=== PATIENT | male | born 1970 | race Caucasian/White ===

== ENCOUNTER → 2017-02-22 | Outpatient (CLI) | payer OTHER ==
--- NOTE | ~2017-02-22 | US37 ---
[facility] A Service of [facility] RADIOLOGY TEXT RESULTS PATIENT: DEACON LEIJA LOCATION: SNIV : 74 UNIT #: [id number] AGE: [address]: Deb Higgins MD SEX: M ORDER DR: [id number] [id number] O MR#: [id number] Acc #: [id number] NAME: DEACON LEIJA : 1970 SEX: M STUDY DATE/TIME: 02/22/2017 8:41 UNIT: SNIV ROOM: STUDY DESCRIPTION: US Carotid W/Doppler Bilateral Attending Physician: Deb Higgins M.D. Referring Physician: Deb Higgins M.D. Ordering Physician: Deb Higgins M.D. Primary Care Physician: Deb Higgins M.D. MEDICAL IMAGING REPORT This report is preliminary unless electronic signature is present. EXAM Bilateral carotid duplex DATE OF EXAMINATION 02/22/2017 HISTORY Dizziness. FINDINGS Duplex imaging of the carotid arteries was performed. The right common carotid artery is patent. Internal and external carotid arteries are patent with no significant plaque. Velocity in the right common carotid is 108, internal is 82 and external is 94 cm/sec. Right ICA/CCA Ratio is 0.98. On the left side the common, internal and external carotid arteries are patent with no plaque or stenosis. Velocity in the left common carotid is 127 cm/sec, internal is 88 and external is 92 cm/sec. Antegrade flow is seen in the right and left vertebral arteries. IMPRESSION There is no evidence of plaque or stenosis in the internal carotid arteries bilaterally. Antegrade flow is seen in the right and left vertebral arteries. Essentially normal carotid duplex exam. Dictated by.Finn Jamison M.D. THIS IS AN ELECTRONICALLY VERIFIED REPORT [facility] A Service of [facility] RADIOLOGY TEXT RESULTS PATIENT: DEACON LEIJA LOCATION: SNIV : 74 UNIT #: [id number] AGE: [address]: Deb Higgins MD SEX: M ORDER DR: Joel Jamison M.D. at 03/02/2017 9:45 AM /alex TD: 02/22/2017 16:59 JOB #: [id number] MEDICAL IMAGING REPORT Page 1 of 1
== END | disposition home or self-care (01) ==
LOC: SNIV 08:30
DX: R42 Dizziness and giddiness (principal)
CPT/HCPCS: 93880

== ENCOUNTER → 2017-05-10 | Outpatient (CLI) | payer OTHER ==
--- NOTE | ~2017-05-10 | US136 ---
[facility] A Service of [facility] RADIOLOGY TEXT RESULTS PATIENT: DEACON LEIJA LOCATION: CNIV : 74 UNIT #: [id number] AGE: [address]: Deb Higgins MD SEX: M ORDER DR: [id number] [address] [id number] [facility]. [place], [place] [address] [id number] O MR#: [id number] Acc #: [id number] NAME: DEACON LEIJA. : 1970 SEX: M STUDY DATE/TIME: 05/10/2017 12:12 UNIT: CNIV ROOM: STUDY DESCRIPTION: US U/L Ext Art Study Ltd Bil Attending Physician: Deb Higgins M.D. Referring Physician: Deb Higgins M.D. Ordering Physician: Deb Higgins M.D. Primary Care Physician: Deb Higgins M.D. MEDICAL IMAGING REPORT This report is preliminary unless electronic signature is present EXAM Ankle-brachial indices HISTORY Lower extremity pain. FINDINGS Pulse volume recordings and Doppler velocity waveforms are normal at the ankle levels bilaterally. Right brachial pressure is 124 and left brachial pressure is 120 mmHg. On the right side, the dorsalis pedis is 137, posterior tibial 139, great toe 109, for a right ankle-brachial index of 1.12. On the left side, posterior tibial is 147, dorsalis pedis 129, great toe 149, for a left ankle-brachial index of 1.19. IMPRESSION Normal perfusion is seen in the lower extremities bilaterally with YUNG of 1.12 on the right and 1.19 on the left. Dictated by... Joel Jamison M.D. THIS IS AN ELECTRONICALLY VERIFIED REPORT Joel Jamison M.D. at 05/13/2017 5:16 PM SA/kely TD: 05/10/2017 23:39 JOB #: [id number] [facility] A Service of [facility] RADIOLOGY TEXT RESULTS PATIENT: DEACON LEIJA LOCATION: [facility] #: [id number] : 74 UNIT #: [id number] AGE: [address]: Deb Higgins MD SEX: M ORDER DR: MEDICAL IMAGING REPORT Page 1 of 1 COPY
== END | disposition home or self-care (01) ==
LOC: CNIV 11:52
DX: M79.661 Pain in right lower leg (principal); M79.662 Pain in left lower leg
CPT/HCPCS: 93922